=== PATIENT | male | born 1970 | race Caucasian/White ===

== ENCOUNTER 2021-12-01 11:11 | Inpatient (IN) | payer MEDICAID ==
[~2021-12-01] VITALS: Ht 162.6 cm; Wt 76.7 kg
[2021-12-01] MEDS ORDERED: LORAZEPAM 2MG/ML CPJ IV ONE (12:15)
[2021-12-01] MEDS ORDERED: CHLORDIAZEPOXIDE 25MG CAPSULE PO ONE (12:15)
[2021-12-01 12:56] LABS: HEMATOCRIT. 51.2 % (42.0-52.0); HEMOGLOBIN. 17.8 g/dL (14.0-18.0); MEAN CORPUSCULAR VOLUME 106.2 fL (80.0-94.0); MEAN PLATELET VOLUME 9.7 fl (7.4-10.4); PLATELET 52 x1000/uL (130-400); RED BLOOD CELL COUNT 4.82 mill/uL (4.7-6.1); RED CELL DISTRIBUTION WIDTH 14.4 % (11.6-14.6)
[2021-12-01 13:14] LABS: CHLORIDE 105 mEq/L (98-107)
[2021-12-01 13:26] LABS: PLATELET ESTIMATE MARKEDLY DECREASED
[2021-12-01 13:35] LABS: CREATINE KINASE 2683 IU/L (39-308)
[2021-12-01] MEDS ORDERED: IPRATROPIUM/ALBUTEROL 0.5-3(2.5)MG/3ML NEB NEB PRN (13:45)
[2021-12-01] MEDS ORDERED: NITROGLYCERIN 0.4MG TABLET SL SL PRN ×2 (13:45→15:45)
[2021-12-01] MEDS ORDERED: ENOXAPARIN 40MG/0.4ML SYR SUBCUT SCH (13:45)
[2021-12-01] MEDS ORDERED: DOCUSATE SODIUM 100MG CAPSULE PO PRN (13:45)
[2021-12-01] MEDS ORDERED: ACETAMINOPHEN 325MG TABLET PO PRN ×2 (13:45)
[2021-12-01] MEDS ORDERED: CLONIDINE 0.1MG TABLET PO PRN (13:45)
[2021-12-01] MEDS ORDERED: KETOROLAC 15MG/ML VIAL IV PRN (13:45)
[2021-12-01] MEDS ORDERED: ONDANSETRON HCL 4MG/2ML INJ IV PRN (13:45)
[2021-12-01] MEDS ORDERED: MAGNESIUM/ALUMINUM HYDROXIDE/SIMETHICONE 30ML UDC PO PRN (13:45)
[2021-12-01] MEDS ORDERED: GUAIFENESIN 200MG/10ML SUGAR FREE UDC PO PRN (13:45)
[2021-12-01] MEDS ORDERED: MVI, ADULT NO.1 10 ML, FOLIC ACID 1 MG, THIAMINE HCL 100 MG in SODIUM CHLORIDE 0.9% 1,0... IV ONE ×4 (14:00)
[2021-12-01] MEDS ORDERED: LORAZEPAM 2MG/ML CPJ IV PRN (14:00)
[2021-12-01 14:51] LABS: ETHANOL BLOOD < 10 mg/dL
[2021-12-01 14:52] LABS: TOTAL IRON BINDING CAPACITY 169 ug/dL (250-450)
[2021-12-01 15:03] LABS: FOLIC ACID (FOLATE) SERUM 12.2 ng/mL (>5.38)
[2021-12-01] MEDS ORDERED: POTASSIUM CHLORIDE 20MEQ TABLET SR PO NR ×2 (15:15→20:15)
[2021-12-01] MEDS: DILTIAZEM HCL 60MG TABLET PO SCH (18:00)
[2021-12-01 20:00] VITALS: BP 163/92
[2021-12-01] MEDS: FAMOTIDINE 20MG TABLET PO SCH (22:04)
[2021-12-01] MEDS: CHLORDIAZEPOXIDE 25MG CAPSULE PO SCH (22:04)
[2021-12-02] VITALS: BP 163/92
[2021-12-02] MEDS: DILTIAZEM HCL 60MG TABLET PO SCH ×4 (01:04→18:13)
[2021-12-02 04:00] VITALS: BP 150/83
[2021-12-02] MEDS: CHLORDIAZEPOXIDE 25MG CAPSULE PO SCH ×3 (06:24→21:22)
[2021-12-02 07:54] LABS: HEMOGLOBIN. 16.8 g/dL (14.0-18.0); MEAN CORPUSCULAR HEMOGLOBIN 37.2 pg (28.0-32.0); MEAN CORPUSCULAR VOLUME 106.2 fL (80.0-94.0); MEAN PLATELET VOLUME 9.7 fl (7.4-10.4); RED BLOOD CELL COUNT 4.52 mill/uL (4.7-6.1); RED CELL DISTRIBUTION WIDTH 14.6 % (11.6-14.6)
[2021-12-02 08:00] VITALS: BP 135/77
[2021-12-02 08:06] LABS: PLATELET 45 x1000/uL (130-400)
[2021-12-02 08:16] LABS: CHLORIDE 108 mEq/L (98-107)
[2021-12-02] MEDS: FAMOTIDINE 20MG TABLET PO SCH ×2 (08:25→21:22)
[2021-12-02] MEDS ORDERED: PNEUMOCOCCAL 23-VAL P-SAC VAC 0.5 ML IM ONE (09:00)
[2021-12-02 12:00] VITALS: BP 136/81
[2021-12-02 13:37] LABS: PLATELET ESTIMATE MARKEDLY DECREASED
[2021-12-02 16:00] VITALS: BP 152/83
[2021-12-02] MEDS ORDERED: POTASSIUM PHOS,M-BASIC-D-BASIC 20 MMOL in DEXT 5% WATER 243.3333 ML IV NR (16:00)
[2021-12-02 20:00] VITALS: BP 146/84
[2021-12-03] VITALS: BP 149/79
[2021-12-03] MEDS: DILTIAZEM HCL 60MG TABLET PO SCH ×5 (00:25→23:25)
[2021-12-03 04:00] VITALS: BP 132/73
[2021-12-03] MEDS: CHLORDIAZEPOXIDE 25MG CAPSULE PO SCH ×3 (06:28→21:53)
[2021-12-03 08:00] VITALS: BP_SYST 117; BP_SYST 152; BP_DIAS 68
[2021-12-03] MEDS: FAMOTIDINE 20MG TABLET PO SCH ×2 (09:06→21:53)
[2021-12-03 12:00] VITALS: BP 152/68
[2021-12-03 16:00] VITALS: BP 126/74
[2021-12-03 20:00] VITALS: BP 124/77
[2021-12-04] VITALS: BP 124/71
[2021-12-04 04:00] VITALS: BP 138/79
[2021-12-04] MEDS: DILTIAZEM HCL 60MG TABLET PO SCH ×3 (06:21→17:01)
[2021-12-04] MEDS: CHLORDIAZEPOXIDE 25MG CAPSULE PO SCH (06:21)
[2021-12-04 08:00] VITALS: BP 120/71
[2021-12-04] MEDS: FAMOTIDINE 20MG TABLET PO SCH ×2 (08:47→22:20)
[2021-12-04] MEDS: THIAMINE HCL 100MG TABLET PO SCH (10:45)
[2021-12-04] MEDS: FOLIC ACID 1MG TABLET PO SCH (10:49)
[2021-12-04] MEDS: MULTIVITAMINS,THER W-MINERALS TABLET PO SCH (10:53)
[2021-12-04 12:00] VITALS: BP 112/66
[2021-12-04] MEDS: CHLORDIAZEPOXIDE 10MG CAPSULE PO SCH ×2 (13:07→22:20)
[2021-12-04 16:00] VITALS: BP 120/74
[2021-12-04 20:00] VITALS: BP 118/66
[2021-12-05] VITALS: BP 127/81
[2021-12-05] MEDS: DILTIAZEM HCL 60MG TABLET PO SCH ×3 (00:53→12:51)
[2021-12-05 04:00] VITALS: BP 127/75
[2021-12-05] MEDS: CHLORDIAZEPOXIDE 10MG CAPSULE PO SCH (06:28)
[2021-12-05 08:00] VITALS: BP 130/71
[2021-12-05] MEDS: FOLIC ACID 1MG TABLET PO SCH (09:19)
[2021-12-05] MEDS: THIAMINE HCL 100MG TABLET PO SCH (09:19)
[2021-12-05] MEDS: MULTIVITAMINS,THER W-MINERALS TABLET PO SCH (09:19)
[2021-12-05] MEDS: FAMOTIDINE 20MG TABLET PO SCH (09:19)
[2021-12-05 12:00] VITALS: BP 117/72
[2021-12-05 13:22] VITALS: BP 117/72
[2021-12-05 16:00] VITALS: BP 122/73
== END 2021-12-05 18:04 | disposition home or self-care (01) | DRG 775 ==
LOC: ER 11:11 → 6WST 13:23 → ENRESERV 19:33
PROVIDERS: ADMIT Internal Medicine; ATTEND Internal Medicine
DX: F10.139 Alcohol abuse with withdrawal, unspecified (principal); E44.0 Moderate protein-calorie malnutrition; M62.82 Rhabdomyolysis; K74.60 Unspecified cirrhosis of liver; Z20.822 Contact with and (suspected) exposure to COVID-19; R79.89 Other specified abnormal findings of blood chemistry; Y90.0 Blood alcohol level of less than 20 mg/100 ml; E87.6 Hypokalemia; Z68.29 Body mass index [BMI] 29.0-29.9, adult; Z88.0 Allergy status to penicillin; Z71.41 Alcohol abuse counseling and surveillance of alcoholic
CPT/HCPCS: 36415; 71045; 74176; 80053; 80320; 82140; 82550; 82607; 82746; 83540; 83550; 83605; 83735; 84100; 84443; 85025; 87426; 90732; 93970; 97162; 97166; 99285; J2060; J3411; J3490; J7030; J7060; G0480

== ENCOUNTER 2022-03-15 21:11 | Emergency (ER) | payer MEDICAID ==
[~2022-03-15] VITALS: Ht 170.2 cm; Wt 83.1 kg
[2022-03-15 23:11] VITALS: BP 146/77
[2022-03-15] MEDS ORDERED: HYDROCODONE/ACETAMINOPHEN 5/325MG TABLET PO ONE (23:15)
[2022-03-16] MEDS ORDERED: IBUP-2030 MT (03:32)
== END 2022-03-16 03:55 | disposition home or self-care (01) ==
LOC: ER 21:21
DX: M79.89 Other specified soft tissue disorders (principal); M25.561 Pain in right knee; W01.198A Fall on same level from slipping, tripping and stumbling with subsequent striking against other object, initial encounter; Y93.39 Activity, other involving climbing, rappelling and jumping off; R03.0 Elevated blood-pressure reading, without diagnosis of hypertension; M17.11 Unilateral primary osteoarthritis, right knee; Y92.488 Other paved roadways as the place of occurrence of the external cause; Y93.89 Activity, other specified
CPT/HCPCS: 73562; 73700; 99284; L1830; Z7610